=== PATIENT | female | born 1985 | race Caucasian/White ===

== ENCOUNTER → 2017-08-09 | Outpatient (CLI) | payer MEDICAID ==
--- NOTE | 2017-08-09 17:07 | US ---
EXAMINATION TYPE: US OB anatomy transabd DATE OF EXAM: 08/09/2017 COMPARISON: US HISTORY: O36.62X0 LARGE FOR DATES TECHNIQUE: Transabdominal (TA) EXAM MEASUREMENTS: GESTATIONAL AGE / DATING Physician Established: (20 weeks/0 days) EDC: 12/27/2017 Dates by LMP: (20 weeks/0 days) EDC: 12/27/2017 Dates by First Scan: (19 weeks/5 days) EDC: 12/28/2017 Dates by Current Scan for: (20 weeks/5 days) EDC: 12/22/2017 SURVEY IUP: Single PLACENTA: Anterior PREVIA: No previa CLEMENTE: 15.0 cm Normal CERVICAL LENGTH (transabdominal: norm > 3.0cm): 5.0 cm BIOMETRY PRESENTATION: Vertex BPD: 4.8 cm 20 weeks / 4 days HC: 17.8 cm 20 weeks / 2 days AC: 16.5 cm 21 weeks / 4 days FL: 3.3 cm 20 weeks / 3 days ESTIMATED WEIGHT IN GRAMS: 384 grams ESTIMATED WEIGHT IN LBS/OZ: 0 lbs. 14 oz. WEIGHT PERCENTAGE BASED ON ESTABLISHED DATE: 90 % HC/AC: 1.1 Normal FL/AC: 20% Normal HEART RATE: 142 bpm RHYTHM: Normal ANATOMY SEEN (within normal limits): * Lateral Vent (< 1 cm) 0.8 cm * Cisterna Magna (< 1.1 cm) 0.4 cm * Nuchal Fold (< 0.6 cm) 0.3 cm * Cerebellum (varies with age) 1.9 cm Choroid Plexus (bilateral) Midline Falx Cavus Septi Pellucidi Four Chamber Heart Outflow tracts: LVOT/RVOT Stomach Situs Nose / Lips Diaphragm Kidneys (bilateral) Bladder Cord Insert Three Vessel Cord Longitudinal Spine Transverse Spine Arms (bilateral) Legs (bilateral) growth according to dates, normal as visualized IMPRESSION: There is satisfactory growth compared to 05/17/2017. I see no complicating process.
== END | disposition home or self-care (01) ==
LOC: RADUSWWP 16:17
PROVIDERS: ATTEND Obstetrics & Gynecology
DX: O36.62X0 Maternal care for excessive fetal growth, second trimester, not applicable or unspecified (principal); Z3A.20 20 weeks gestation of pregnancy
CPT/HCPCS: 76811

== ENCOUNTER → 2017-09-07 | Outpatient (CLI) | payer MEDICAID ==
[2017-09-07 10:52] LABS: HCT 36.2 % (34.0-46.0); HGB 12.3 gm/dL (11.4-16.0); MCH 32.7 pg (25.0-35.0); MCHC 34.1 g/dL (31.0-37.0); MCV 96.1 fL (80.0-100.0); Mean Platelet Volume 7.8; Platelet Count 170 k/uL (150-450); RBC 3.77 m/uL (3.80-5.40); RDW 13.2 % (11.5-15.5); WBC 7.6 k/uL (3.8-10.6)
== END | disposition home or self-care (01) ==
LOC: LABWHC1 09:05
PROVIDERS: ATTEND Obstetrics & Gynecology
DX: Z34.92 Encounter for supervision of normal pregnancy, unspecified, second trimester (principal); Z3A.00 Weeks of gestation of pregnancy not specified
CPT/HCPCS: 36415; 82950; 85027; 86762

== ENCOUNTER 2017-09-30 12:59 | Outpatient (CLI) | payer MEDICAID ==
[2017-09-30 13:33] VITALS: BP 112/66; PULSE 83; RESP 16; TEMP 98.1
--- NOTE | 2017-09-30 21:37 | P.MSEPDOC ---
Presenting Problems - Arrival Data Date of Arrival on Unit: 09/30/17 Time of Arrival on Unit: 12:56 Mode of Transport: Ambulatory - Complaint OB-Reason for Admission/Chief Complaint: Pain Comment: pt c/o intermittent right upper quad pain below rib cage that lasts a couple seconds at a time for the last three days Medical History - Information : 3 Para: 2 Term: 2 : 0 Abortions: Spontaneous or Elective: 0 Number of Living Children: 2 - Gestational Age Gestational Age by MARGARITA (wks/days): 27 Weeks and 3 Days - History Complications: Prior Review of Systems - Review of Systems Constitutional: No problems Breast: No problems ENT: No problems Cardiovascular: No problems Respiratory: No problems Gastrointestinal: No problems Genitourinary: No problems Musculoskeletal: No problems Neurological: No problems Skin: No problems Vital Signs - Temperature Temperature: 98.1 F Temperature Source: Oral - Pulse Right Brachial Pulse Rate: 83 Pulse Assessment Method: Automatic Cuff - Respirations Respiratory Rate: 16 Oxygen Delivery Method: Room Air O2 Sat by Pulse Oximetry: 98 - Blood Pressure Right Arm Blood Pressure: 112/66 Blood Pressure Mean: 81 Blood Pressure Source: Automatic Cuff Medical Screen Scoring (Pre) - Cervical Exam Dilation: Exam Deferred Effacement: Exam Deferred Membranes: Intact - Uterine Contractions Frequency: N/A Duration: N/A Intensity: N/A - Maternal Vital Signs Maternal Temperature: N/A Maternal Blood Pressure: N/A Signs of Preeclampsia: N/A Maternal Respirations: N/A - Pain Assessment Pain Location and Character: Right, Upper, Abdomen Pain Scale Used: Numeric (1 - 10) Pain Intensity: 4 Pain Management Goal: 5 Pain Description: Cramping Pain Radiation Location: none Pain Frequency: Intermittent Pain Duration: 2 Pain Duration Units: Days Pain Behavior: None Exhibited Pain Aggravating Factors: None - Maternal Trauma Maternal Trauma: N/A - Assessment Baseline FHR: 140 Heart Rate - NICHD Category: Category I (Normal) = 0 Position: N/A Station: N/A - Total Score Total Score (Pre): 0 - Level of Risk Level of Risk: Low (0-5) Physician Notification (Pre) - Physician Notified Physician Notified Date: 09/30/17 Physician Notified Time: 13:33 Physician/Practitioner Notifed:: Dr busch Spoke With: Dr Busch New Order Received: Yes (dc home) Medical Screen Scoring (Post) - Post Treatment Level of Risk Post Treatment Level of Risk: Low (0-5) Disposition - Disposition OB Disposition: Discharge to home, Written follow up instructions reviewed Discharge Date: 09/30/17 Discharge Time: 13:40 I agree with the RN Medical Screening Exam: Yes Risk & Benefit of care provided described in d/c instruction: Yes Diagnosis: PAIN, UNSPECIFIED
== END 2017-09-30 13:40 | disposition home or self-care (01) ==
LOC: FBPOP 12:59
PROVIDERS: ATTEND Obstetrics & Gynecology
DX: O99.89 Other specified diseases and conditions complicating pregnancy, childbirth and the puerperium (principal); R10.11 Right upper quadrant pain; Z3A.27 27 weeks gestation of pregnancy
CPT/HCPCS: 99213

== ENCOUNTER → 2017-11-24 | Outpatient (CLI) | payer MEDICAID ==
--- NOTE | 2017-11-25 23:52 | US ---
EXAMINATION TYPE: US OB >= 14 wk fetus DATE OF EXAM: 11/24/2017 COMPARISON: Prior ultrasound August 09, 2017. CLINICAL HISTORY: O36.63X0 confirm dates TECHNIQUE: GESTATIONAL AGE / DATING Physician Established: (35 weeks/2 days) EDC: 12/27/17 Dates by LMP: (35 weeks/2 days) EDC: 12/27/17 Dates by First Scan: (35 weeks/3 days) EDC: 12/28/17 Dates by Current Scan: (34 weeks/6 days) EDC: 12/30/17 SURVEY IUP: Single PLACENTA: Anterior PREVIA: Low Lying CLEMENTE: 8.4 cm CERVICAL LENGTH (transabdominal: norm > 3.0cm): 4.1 cm BIOMETRY PRESENTATION: Vertex LIE: Longitudinal BPD: 8.7 cm 35 weeks / 1 days HC: 31.5 cm 35 weeks / 3 days AC: 31.0 cm 35 weeks / 0 days FL: 6.9 cm 35 weeks / 2 days ESTIMATED WEIGHT IN GRAMS: 2588 grams ESTIMATED WEIGHT IN LBS/OZ: 5 lbs. 11 oz. WEIGHT PERCENTAGE BASED ON ESTABLISHED DATES: 41% HC/AC: 1.0 FL/AC: 22.1 HEART RATE: 141 bpm RHYTHM: Normal Anatomy visualized: Stomach Kidneys Spine Bladder Cavum septum pellucidum 3 vessel chord Other anatomy not visualized due to crowding and bone shadowing. Stomach appears to have debris in it. 's office notified of low CLEMENTE. Spoke with Jennifer Single live intrauterine gestation is redemonstrated. Normal cephalad presentation to fetus is seen c urrently. There is no ultrasound evidence for placenta previa. Amniotic fluid index is lower limits o f normal. biometry measurements are congruent and felt within normal limits. Anatomical survey is suboptimal at this advanced gestational age. Prominent stomach bubble is noted. A few other anatom ical landmarks are felt satisfactory during real-time scanning as noted above. IMPRESSION: As above
== END ==
LOC: RADUSWWP 15:37
PROVIDERS: ATTEND Obstetrics & Gynecology
DX: O36.63X0 Maternal care for excessive fetal growth, third trimester, not applicable or unspecified (principal); Z3A.35 35 weeks gestation of pregnancy
CPT/HCPCS: 76805

== ENCOUNTER → 2017-11-30 | Outpatient (CLI) | payer MEDICAID ==
--- NOTE | 2017-11-30 15:05 | US ---
EXAMINATION TYPE: US OB >= 14 wk fetus DATE OF EXAM: 11/30/2017 COMPARISON: None CLINICAL HISTORY: O28.8 Other abnormal findings on screen TECHNIQUE: Transabdominal (TA) GESTATIONAL AGE / DATING Physician Established: (36 weeks/1 days) EDC: 12/27/17 Dates by LMP: (36 weeks/1 days) EDC: 12/27/17 Dates by First Scan: (36 weeks/2 days) EDC: 12/28/17 Dates by Current Scan: (37 weeks/1 days) EDC: 12/20/17 Beta HCG (if available): SURVEY IUP: Single PLACENTA: Anterior PREVIA: No Previa CLEMENTE: 8.4 cm CERVICAL LENGTH (transabdominal: norm > 3.0cm): 3.0 cm BIOMETRY PRESENTATION: Vertex LIE: Longitudinal BPD: 9.0 cm 36 weeks / 3 days HC: 33.1 cm 37 weeks / 5 days AC: 35.0 cm 38 weeks / 3 days FL: 7.3 cm 37 weeks / 1 days ESTIMATED WEIGHT IN GRAMS: 3320 grams ESTIMATED WEIGHT IN LBS/OZ: 7 lbs. 5 oz. WEIGHT PERCENTAGE BASED ON ESTABLISHED DATES: 90% HC/AC: 0.9 FL/AC: 20.9 HEART RATE: 179 bpm RHYTHM: Normal Phoned Beulah at [facility] OB with results. IMPRESSION: 1. Single live intrauterine with a sonographic age of 37 weeks and 1 day on today's examina tion and estimated date of delivery of 12/20/2017. Dates are within one week of the menstrual age. 2. Amnionic fluid index is unchanged from the prior and at the lower limits of normal (8.4).
== END | disposition home or self-care (01) ==
LOC: RADUSWWP 14:10
PROVIDERS: ATTEND Obstetrics & Gynecology
DX: O28.8 Other abnormal findings on antenatal screening of mother (principal); Z3A.37 37 weeks gestation of pregnancy
CPT/HCPCS: 76805

== ENCOUNTER → 2017-12-01 | Outpatient (CLI) | payer MEDICAID ==
[2017-12-01 14:01] VITALS: BP 108/69; PULSE 105; RESP 20; TEMP 98.1
--- NOTE | 2017-12-03 16:33 | P.MSEPDOC ---
Presenting Problems - Arrival Data Date of Arrival on Unit: 12/01/17 Time of Arrival on Unit: 13:11 Mode of Transport: Ambulatory - Complaint OB-Reason for Admission/Chief Complaint: NST Comment: Presents with script from Dr. Busch for NST d/t low CLEMENTE. MSE deferred at this time. Medical History - Information : 3 Para: 2 Term: 2 : 0 Abortions: Spontaneous or Elective: 0 Number of Living Children: 2 - Gestational Age Gestational Age by MARGARITA (wks/days): 36 Weeks and 2 Days - History Comment: HX of low CLEMENTE Review of Systems - Review of Systems Constitutional: No problems Breast: No problems ENT: No problems Cardiovascular: No problems Respiratory: No problems Gastrointestinal: No problems Genitourinary: No problems Musculoskeletal: No problems Neurological: No problems Skin: No problems Vital Signs - Temperature Temperature: 98.1 F Temperature Source: Oral - Pulse Right Brachial Pulse Rate: 105 Pulse Assessment Method: Automatic Cuff - Respirations Respiratory Rate: 20 Oxygen Delivery Method: Room Air - Blood Pressure Right Arm Blood Pressure: 108/69 Blood Pressure Mean: 82 Blood Pressure Source: Automatic Cuff Medical Screen Scoring (Pre) - Assessment Baseline FHR: 145 Heart Rate - NICHD Category: Category I (Normal) = 0 NST: Reactive Position: N/A Station: N/A - Total Score Total Score (Pre): 0 - Level of Risk Level of Risk: Low (0-5) Physician Notification (Pre) - Physician Notified Physician Notified Date: 12/01/17 Physician Notified Time: 13:41 Physician/Practitioner Notifed:: Dr. Naranjo Spoke With: Dr. Naranjo New Order Received: Yes - Notification Comment Comment: Discharge home. Keep appt. Return with decreased movement. Disposition - Disposition OB Disposition: Discharge to home, Written follow up instructions reviewed Transferred to:: Home Discharge Date: 12/01/17 Discharge Time: 13:45 I agree with the RN Medical Screening Exam: Yes Risk & Benefit of care provided described in d/c instruction: Yes Diagnosis: OLIGOHYDRAMNIOS, THIRD TRIMESTER, FETUS 1
== END | disposition home or self-care (01) ==
LOC: FBPOP 13:11
PROVIDERS: ATTEND Obstetrics & Gynecology
DX: O41.03X0 Oligohydramnios, third trimester, not applicable or unspecified (principal); Z3A.36 36 weeks gestation of pregnancy
CPT/HCPCS: 59025

== ENCOUNTER 2017-12-04 10:17 | Outpatient (CLI) | payer MEDICAID ==
[2017-12-04 10:52] VITALS: BP 120/73; PULSE 114; RESP 18; TEMP 98.3
--- NOTE | 2017-12-04 17:03 | P.MSEPDOC ---
Presenting Problems - Arrival Data Date of Arrival on Unit: 12/04/17 Time of Arrival on Unit: 10:30 Mode of Transport: Ambulatory - Complaint OB-Reason for Admission/Chief Complaint: Possible Onset of Labor Comment: states not feeling right...feeling off....sob...cramping. denies leaking or bleeding. has borderline low cristopher. nst's twice weekly. Medical History - Information : 3 Para: 2 Term: 2 : 0 Abortions: Spontaneous or Elective: 0 Number of Living Children: 2 - Gestational Age Gestational Age by MARGARITA (wks/days): 36 Weeks and 5 Days Review of Systems - Review of Systems Constitutional: No problems Breast: No problems ENT: No problems Cardiovascular: No problems Respiratory: No problems Gastrointestinal: No problems Genitourinary: No problems Musculoskeletal: No problems Neurological: No problems Skin: No problems Vital Signs - Temperature Temperature: 98.3 F Temperature Source: Oral - Pulse Right Brachial Pulse Rate: 114 Pulse Assessment Method: Automatic Cuff - Respirations Respiratory Rate: 18 Oxygen Delivery Method: Room Air O2 Sat by Pulse Oximetry: 96 - Blood Pressure Right Arm Blood Pressure: 120/73 Blood Pressure Mean: 88 Blood Pressure Source: Automatic Cuff Medical Screen Scoring (Pre) - Cervical Exam Dilation: Exam Deferred Effacement: Exam Deferred Membranes: Intact - Uterine Contractions Frequency: N/A Duration: N/A Intensity: N/A - Maternal Vital Signs Maternal Temperature: N/A Maternal Blood Pressure: N/A Signs of Preeclampsia: N/A Maternal Respirations: N/A - Pain Assessment Pain Location and Character: Lower, Abdomen Pain Scale Used: Numeric (1 - 10) Pain Intensity: 2 Pain Radiation Location: 7 Pain Frequency: Intermittent Pain Behavior: None Exhibited, Vocalization Pain Aggravating Factors: Activity, Contractions, Standing Non-Pharmacological Interventions: Darkened Room - Maternal Trauma Maternal Trauma: N/A - Assessment Baseline FHR: 150 Heart Rate - NICHD Category: Category I (Normal) = 0 NST: Reactive Position: N/A Station: N/A - Total Score Total Score (Pre): 0 - Level of Risk Level of Risk: Low (0-5) Physician Notification (Pre) - Physician Notified Physician Notified Date: 12/04/17 Physician Notified Time: 11:00 Physician/Practitioner Notifed:: yes Spoke With: sun Ledesma Order Received: Yes - Notification Comment Comment: discharge home. notified of pt admission c/o. vitals. lung sounds. heart rate regular. abd soft. irreg contx. no vag exam, reactive nst, sched appt tomorrow. without dyspnea. Medical Screen Scoring (Post) - Cervical Exam Dilation: Exam Deferred Effacement: Exam Deferred Membranes: Intact - Uterine Contractions Frequency: N/A Duration: N/A Intensity: N/A - Maternal Vital Signs Maternal Temperature: N/A Maternal Blood Pressure: N/A Signs of Preeclampsia: N/A Maternal Respirations: N/A - Pain Assessment Pain Location and Character: Lower, Abdomen Pain Scale Used: Numeric (1 - 10) Pain Intensity: 2 Pain Description: *Acute Pain Frequency: Intermittent Pain Duration: 15 Pain Duration Units: Minutes Pain Behavior: None Exhibited, Vocalization Pain Aggravating Factors: Activity, Standing Non-Pharmacological Interventions: Darkened Room - Maternal Trauma Maternal Trauma: N/A - Assessment Heart Rate: 150 Heart Rate - NICHD Category: Category I (Normal) = 0 NST: Reactive Position: N/A Station: N/A - Total Score Total Score (Post): 0 - Post Treatment Level of Risk Post Treatment Level of Risk: Low (0-5) Physician Notification (Post) - Physician Notified Physician Notified Date: 12/04/17 Physician Notified Time: 11:05 Spoke With: sun Ledesma Order Received: Yes - Notification Comment Comment: discharge. keep sched appt tomorow Disposition - Disposition OB Disposition: Discharge to home Discharge Date: 12/04/17 Discharge Time: 11:17 I agree with the RN Medical Screening Exam: Yes Risk & Benefit of care provided described in d/c instruction: Yes Diagnosis: FALSE LABOR BEFORE 37 COMPLETED WEEKS OF GEST, THIRD TRI
== END 2017-12-04 11:17 | disposition home or self-care (01) ==
LOC: FBPOP 10:17
PROVIDERS: ATTEND Obstetrics & Gynecology
DX: O47.03 False labor before 37 completed weeks of gestation, third trimester (principal); Z3A.36 36 weeks gestation of pregnancy
CPT/HCPCS: 59025; 99213

== ENCOUNTER → 2017-12-06 | Outpatient (CLI) | payer MEDICAID ==
--- NOTE | 2017-12-06 13:11 | US ---
EXAMINATION TYPE: US OB limited DATE OF EXAM: 12/06/2017 COMPARISON: 11/30/2017 CLINICAL HISTORY: 31-year-old female O28.8 abnormal findings on screening of. Low CLEMENTE- CLEMENTE only per order EXAM PERFORMED: Transabdominal (TA) FINDINGS: GESTATIONAL AGE / DATING Physician Established: (37 weeks/0 days) EDC: 12/27/2017 No growth performed on today?s study per ordering physician SURVEY CLEMENTE: 13.7 cm Normal Ultrasound evidence of premature rupture of membranes? No PRESENTATION: Vertex HEART RATE: 165 bpm RHYTHM: Normal Mild floating echoes/debris visualized within amniotic fluid. IMPRESSION: 1. Single live intrauterine with established gestational age of 37 weeks 0 days. Growth not assessed on the current exam. 2. CLEMENTE now measured at 13.7 cm which is normal. 3. Some internal low-level echoes/debris within the amniotic fluid is noted by the pad hand. Likel y some vernix caseosa.
== END | disposition home or self-care (01) ==
LOC: RADUSWWP 09:35
PROVIDERS: ATTEND Obstetrics & Gynecology
DX: O28.8 Other abnormal findings on antenatal screening of mother (principal); Z3A.37 37 weeks gestation of pregnancy
CPT/HCPCS: 76815

== ENCOUNTER 2017-12-08 09:54 | Outpatient (CLI) | payer MEDICAID ==
[2017-12-08 10:30] VITALS: BP 118/70; PULSE 98; RESP 18; TEMP 97.3
--- NOTE | 2017-12-09 06:48 | P.MSEPDOC ---
Presenting Problems - Arrival Data Date of Arrival on Unit: 12/08/17 Time of Arrival on Unit: 09:52 Mode of Transport: Ambulatory - Complaint OB-Reason for Admission/Chief Complaint: NST Comment: NST for "borderline" low amniotic fluid Medical History - Information : 3 Para: 2 Term: 2 : 0 Abortions: Spontaneous or Elective: 0 Number of Living Children: 2 - Gestational Age Gestational Age by MARGARITA (wks/days): 37 Weeks and 2 Days - History Complications: Prior Review of Systems - Review of Systems Constitutional: No problems Breast: No problems ENT: No problems Cardiovascular: No problems Respiratory: No problems Gastrointestinal: No problems Genitourinary: No problems Musculoskeletal: No problems Neurological: No problems Skin: No problems Vital Signs - Temperature Temperature: 97.3 F Temperature Source: Temporal Artery Scan - Pulse Pulse Oximetery Pulse Rate: 98 Pulse Assessment Method: Pulse Oximetry - Respirations Respiratory Rate: 18 Oxygen Delivery Method: Room Air O2 Sat by Pulse Oximetry: 97 - Blood Pressure Right Arm Blood Pressure: 118/70 Blood Pressure Mean: 86 Blood Pressure Source: Automatic Cuff Medical Screen Scoring (Pre) - Cervical Exam Dilation: Exam Deferred Effacement: Exam Deferred Membranes: Intact - Uterine Contractions Frequency: > 5 minutes apart = 1 Duration: N/A Intensity: N/A - Maternal Vital Signs Maternal Temperature: N/A Maternal Blood Pressure: N/A Signs of Preeclampsia: N/A Maternal Respirations: N/A - Pain Assessment Pain Scale Used: Numeric (1 - 10) Pain Intensity: 0 - Assessment Baseline FHR: 135 Heart Rate - NICHD Category: Category I (Normal) = 0 NST: Reactive Position: N/A Station: N/A - Total Score Total Score (Pre): 1 - Level of Risk Level of Risk: Low (0-5) Physician Notification (Pre) - Physician Notified Physician Notified Date: 12/08/17 Physician Notified Time: 10:18 Physician/Practitioner Notifed:: Narayan Spoke With: Narayan Ledesma Order Received: Yes (discharge home) Disposition - Disposition OB Disposition: Discharge to home Discharge Date: 12/08/17 Discharge Time: 10:22 I agree with the RN Medical Screening Exam: Yes Risk & Benefit of care provided described in d/c instruction: Yes Diagnosis: OTH DISRD OF AMNIOTIC FLUID AND MEMBRNS, FIRST TRI, FETUS 1
== END 2017-12-08 10:22 | disposition home or self-care (01) ==
LOC: FBPOP 09:54
PROVIDERS: ATTEND Obstetrics & Gynecology
DX: O41.8X10 Other specified disorders of amniotic fluid and membranes, first trimester, not applicable or unspecified (principal); Z3A.37 37 weeks gestation of pregnancy
CPT/HCPCS: 59025; 99213

== ENCOUNTER 2017-12-15 10:27 | Outpatient (CLI) | payer MEDICAID ==
--- NOTE | 2017-12-16 06:39 | P.MSEPDOC ---
Presenting Problems - Arrival Data Date of Arrival on Unit: 12/15/17 Time of Arrival on Unit: 10:27 Mode of Transport: Ambulatory - Complaint OB-Reason for Admission/Chief Complaint: NST Comment: Pt arrives to triage with a script for NST; pt may be d/c home if reactive. I agree with the RN Medical Screening Exam: Yes Risk & Benefit of care provided described in d/c instruction: Yes Diagnosis: DISORDER OF AMNIOTIC FLUID AND MEMBRNS, UNSP, THIRD TRI, OTH
== END 2017-12-15 10:50 | disposition home or self-care (01) ==
LOC: FBPOP 10:27
PROVIDERS: ATTEND Obstetrics & Gynecology
DX: O41.93X0 Disorder of amniotic fluid and membranes, unspecified, third trimester, not applicable or unspecified (principal); Z3A.00 Weeks of gestation of pregnancy not specified
CPT/HCPCS: 59025

== ENCOUNTER 2017-12-22 10:57 | Outpatient (CLI) | payer MEDICAID ==
[2017-12-22 12:07] VITALS: BP 116/74; PULSE 81; RESP 16; TEMP 97
--- NOTE | 2017-12-26 06:52 | P.MSEPDOC ---
Presenting Problems - Arrival Data Date of Arrival on Unit: 12/22/17 Time of Arrival on Unit: 11:00 Mode of Transport: Ambulatory - Complaint OB-Reason for Admission/Chief Complaint: NST Medical History - Information : 3 Para: 2 Term: 2 : 0 Abortions: Spontaneous or Elective: 0 Number of Living Children: 2 - Gestational Age Gestational Age by MARGARITA (wks/days): 39 Weeks and 2 Days - History Comment: low CLEMENTE, Pt presented with written RX for NST Review of Systems - Review of Systems Constitutional: No problems Breast: No problems ENT: No problems Cardiovascular: No problems Respiratory: No problems Gastrointestinal: No problems Genitourinary: No problems Musculoskeletal: No problems Neurological: No problems Skin: No problems Vital Signs - Temperature Temperature: 97.0 F Temperature Source: Tympanic - Pulse Right Brachial Pulse Rate: 81 Pulse Assessment Method: Automatic Cuff - Respirations Respiratory Rate: 16 Oxygen Delivery Method: Room Air - Blood Pressure Right Arm Blood Pressure: 116/74 Blood Pressure Mean: 88 Blood Pressure Source: Automatic Cuff Medical Screen Scoring (Pre) - Cervical Exam Dilation: Exam Deferred Effacement: Exam Deferred Membranes: Intact - Uterine Contractions Frequency: > or = 36 weeks =2 Duration: > 40 seconds = 2 Intensity: N/A - Maternal Vital Signs Maternal Temperature: N/A Maternal Blood Pressure: N/A Signs of Preeclampsia: N/A Maternal Respirations: N/A - Maternal Trauma Maternal Trauma: N/A - Assessment Baseline FHR: 135 Heart Rate - NICHD Category: Category I (Normal) = 0 NST: Reactive Position: N/A Station: N/A - Total Score Total Score (Pre): 4 Disposition - Disposition OB Disposition: Discharge to home Discharge Date: 12/22/17 Discharge Time: 11:30 I agree with the RN Medical Screening Exam: Yes Risk & Benefit of care provided described in d/c instruction: Yes Diagnosis: DISORDER OF AMNIOTIC FLUID AND MEMBRNS, UNSP, UNSP TRI, OTH
== END 2017-12-22 11:30 | disposition home or self-care (01) ==
LOC: FBPOP 10:57
PROVIDERS: ATTEND Obstetrics & Gynecology
DX: O41.93X0 Disorder of amniotic fluid and membranes, unspecified, third trimester, not applicable or unspecified (principal); Z3A.39 39 weeks gestation of pregnancy
CPT/HCPCS: 59025; 99213

== ENCOUNTER 2017-12-27 05:52 | Inpatient (IN) | payer MEDICAID ==
--- NOTE | 2017-12-26 06:17 | P.HPOB ---
History of Present Illness H&P Date: 12/26/17 Chief Complaint: Patient is presenting for repeat and tubal ligation This patient is a pleasant 31-year-old 3 para 2 female estimated date of confinement 12/27/2017 estimated gestational age 40-0/7 weeks gestation who presents to labor and delivery for repeat section and tubal ligation. Patient's was complicated by a low normal CLEMENTE that was discovered at 35 weeks however repeat fluid index was normal and nonstress testing has been normal. Patient also has macrosomia. care otherwise has been uncomplicated. Patient said 2 previous section and requested repeat C- section and also requests permanent sterilization. Review of Systems Gastrointestinal: Reports heartburn Genitourinary: Reports Menstruation: Reports amenorrhea Past Medical History Past Medical History: No Reported History History of Any Multi-Drug Resistant Organisms: None Reported Past Surgical History: Section, Tonsillectomy Additional Past Surgical History / Comment(s): TONSILLS A CHILD, X2. Past Anesthesia/Blood Transfusion Reactions: No Reported Reaction Past Psychological History: No Psychological Hx Reported Smoking Status: Never smoker Past Alcohol Use History: None Reported Past Drug Use History: None Reported - Past Family History Father Family Medical History: Cancer Additional Family Medical History / Comment(s): ORAL CANCER Medications and Allergies Home Medications Medication Instructions Recorded Confirmed Type Pnv,Calcium 72/Iron/Folic Acid 1 tab PO DAILY 09/30/17 12/15/17 History [ Plus Tablet] Allergies Allergy/AdvReac Type Severity Reaction Status Date / Time No Known Allergies Allergy Verified 12/15/17 10:36 Exam - OBG Physical Exam Abdomen: bowel sounds normal, no diffuse tenderness, no bruit present, no guarding noted, no hepatomegaly, no splenomegaly, no mass Vulva: both: normal Vagina: normal moisture, no discharge Cervix: no lesion, no discharge Uterus: enlarged (Fundal height is greater than dates.) Results blood work shows she is A positive, rubella immune, hepatitis B negative, HIV nonreactive, RPR is negative, group B strep was negative, ultrasounds of shown macrosomia otherwise normal. Glucola was normal. Assessment and Plan Assessment: This is a pleasant 31-year-old 3 para 2 female 40-0/7 weeks gestation with previous section who desires repeat section and also requesting permanent sterilization. Patient I have discussed the fact that a tubal ligation is permanent however there is a failure rate of approximately 5 per thousand procedures done. Patient also understands surgery itself has risks including risks of infection, bleeding, possible injury bowel, bladder, vessels, and/or other organs. She understands risk of DVT and pulmonary embolism. All the patient's questions are answered and a written consent is obtained. (1) Previous delivery affecting Status: Acute Code(s): O34.21 - MATERNAL CARE FOR SCAR FROM PREVIOUS * DO NOT USE * SNOMED Code(s): 303492236 (2) Family planning Status: Acute Code(s): Z30.09 - ENCOUNTER FOR OTH GENERAL CNSL AND ADVICE ON CONTRACEPTION SNOMED Code(s): 509090012
[2017-12-26 14:39] VITALS: BMI 31.8
[2017-12-27] MEDS ORDERED: LACTATED RINGERS 1,000 ML IV SCH ×2 (06:02→08:36)
[2017-12-27] MEDS ORDERED: CITRIC ACID-SODIUM CITRATE 15 ML CUP PO ONE (06:02)
[2017-12-27] MEDS ORDERED: LACTATED RINGERS 1,000 ML IV ONE (06:02)
[2017-12-27 06:15] LABS: Basophils % (A) 0 %; Eosinophils # (A) 0.1 k/uL (0-0.7); Eosinophils % (A) 1 %; HCT 38.8 % (34.0-46.0); HGB 13.5 gm/dL (11.4-16.0); Lymphocytes # (A) 2.3 k/uL (1.0-4.8); Lymphocytes % (A) 26 %; MCH 33.3 pg (25.0-35.0); MCHC 34.8 g/dL (31.0-37.0); MCV 95.8 fL (80.0-100.0); Mean Platelet Volume 9.1; Monocytes # (A) 0.3 k/uL (0-1.0); Monocytes % (A) 4 %; Neutrophils % (A) 68 %; Platelet Count 130 k/uL (150-450); RBC 4.05 m/uL (3.80-5.40); RDW 13.3 % (11.5-15.5); WBC 8.8 k/uL (3.8-10.6)
[2017-12-27] MEDS ORDERED: ceFAZolin IN SWFI 2 GM/20 ML SYRINGE IVP ONE (07:15)
[2017-12-27] MEDS ORDERED: DEXAMETHASONE SOD PHOS (MDV) 100 MG/10 ML VIAL ONE (07:47)
[2017-12-27] MEDS ORDERED: ONDANSETRON 4 MG/2 ML VIAL ONE (07:47)
[2017-12-27] MEDS ORDERED: OXYTOCIN 10 UNIT/ML 1 ML VIAL ONE (07:47)
[2017-12-27] MEDS ORDERED: MORPHINE SULFATE (PF) 0.3 MG/0.3 ML SYR ONE (07:47)
[2017-12-27] MEDS ORDERED: NALBUPHINE 10 MG/ML AMPUL ONE (07:47)
[2017-12-27] MEDS ORDERED: KETOROLAC 30 MG/ML 1 ML VIAL ONE (07:47)
[2017-12-27] MEDS ORDERED: OXYTOCIN 20 UNITS/1000 ML NS 1,000 ML IV SCH (08:36)
[2017-12-27] MEDS ORDERED: SIMETHICONE 80 MG CHEWABLE PO PRN (08:36)
[2017-12-27] MEDS ORDERED: METOCLOPRAMIDE 5 MG/ML 2 ML VIAL IVP PRN (08:36)
[2017-12-27] MEDS ORDERED: ONDANSETRON 4 MG/2 ML VIAL IVP PRN (08:36)
[2017-12-27] MEDS ORDERED: NALOXONE 0.4 MG/ML 1 ML VIAL IV PRN (08:36)
[2017-12-27] MEDS ORDERED: LANOLIN CREAM 5 GM TUBE TOPICAL PRN (08:36)
[2017-12-27] MEDS ORDERED: ZOLPIDEM 5 MG TAB PO PRN (08:36)
[2017-12-27] MEDS ORDERED: diphenhydrAMINE 50 MG/ML 1 ML VIAL IVP PRN (08:36)
[2017-12-27] MEDS ORDERED: diphenhydrAMINE 25 MG CAP PO PRN (08:36)
[2017-12-27] MEDS ORDERED: KETOROLAC 30 MG/ML 1 ML VIAL IVP PRN (08:36)
--- NOTE | 2017-12-27 08:38 | P.OP ---
Date of Procedure: 12/27/17 Preoperative Diagnosis: #1: 40-0/7 weeks . #2: Previous section 2 desires repeat. # 3: Multi parity desires permanent sterilization. #4: Early labor Postoperative Diagnosis: Same Procedure(s) Performed: #1: Repeat low transverse section. #2: Bilateral partial salpingectomy Anesthesia: spinal Surgeon: Dre Busch Research Anthropologist #1: Alisha Antonio Estimated Blood Loss (ml): 600 Pathology: other (Placenta and bilateral fallopian tube segments) Condition: stable Disposition: floor Indications for Procedure: Please see dictated H&P for intimate details of this patient's admission. Brief summary this is a pleasant 31-year-old 3 para 2 female 40-0/7 weeks gestation who is admitted to labor and delivery for elective repeat section and tubal ligation. Patient also began having regular painful contractions about 2:00 this morning. Patient I have discussed the surgery and risks including risks of infection, bleeding, possible injury bowel, bladder, vessels, and/or other organs. All the patient's questions are answered and written consent is obtained. Operative Findings: This is a vigorous viable male infant Apgars 8 and 9 delivery time was 0805 hrs. 's weight was 4790 g or 10 lbs. 9 oz. had spontaneous respiration and grossly appeared normal. Nuchal cord 1 Description of Procedure: This patient has a Curry catheter placed to straight drain. She is subsequently taken to the operating room where she sat up and spinal anesthetic is administered without incident. With an adequate level of anesthesia she has abdominal prep and drape. Scalpels and taken and a Pfannenstiel skin incision is made through the previous incision. A second scalpel is taken down the fascia the fascia scored with a knife. Fascial incision extended bilaterally using the Saeed scissors. Fascia is dissected off the rectus muscles sharply. Rectus muscles are the peritoneum identified and entered sharply. Peritoneal incision extended superiorly and inferiorly without difficulty. Bladder blade is then placed. Bladder peritoneum was taken off the lower uterine segment with the Metzenbaum scissors. Scalpels and taken and a low transverse uterine incision is then made. Using a hemostat I into the uterine cavity bluntly and there is loss of a copious amount of clear fluid. This incision is then extended bluntly. Infant's head is then gently guided through the incision with fundal pressure. Mouth and nares are bulb suctioned. There is a nuchal cord which is loose and then reduced. With more fundal pressure we then have deliver the anterior and posterior shoulder and rest this infant's body. Is a vigorous viable male infant Apgars are 8 and 9 delivery time is 0805 hrs. After delivery of the the umbilical cord is doubly clamped and cut is handed off to the nurses in attendance. The placenta is then manually extracted intact. Uterus is then externalized and uterine incision demarcated with Hanson clamps. All tissue is removed from the uterus without difficulty. Uterine incision then closed using 0 Vicryl running locked fashion. Excellent hemostasis is noted. Then turned my attention a left fallopian tube and approximately 4 cm from the cornual insertion a small window is made to the mesial salpinx with Bovie cautery. Using a 2-0 silk I doubly ligate a 2 cm segment of the tube. Estimated segment is excised and handed off to pathology. Cauterization is done of the tubal ends. Excellent hemostasis is noted similar technique is done the right side with similar results. With this done excess fluid is removed from the abdomen and pelvis. Uterus placed back into the abdomen. Parietal peritoneum was then identified. Inspect the fallopian tubes incision once again I do put a [id number] stitch and the uterine incision for one area that is a little bit oozy. With this done the parietal peritoneum was then closed using 0 Vicryl running fashion. Rectus muscles reapproximated in 0 Vicryl interrupted fashion. Fascia is then closed using 0 PDS. Fascial incision is intact and hemostatic. Subcutaneous tissues and closed using a 3-0 Vicryl. Skin is and closed using cb. All counts are correct 3. There are no complications. Infant and mother are in taken to the delivery room in satisfactory condition.
[2017-12-27] MEDS: SENNOSIDES-DOCUSATE SODIUM 1 EACH TAB PO SCH ×2 (08:52→19:53)
--- NOTE | 2017-12-28 05:46 | P.PN ---
Progress Note - Text Date: 12/28/2017 Time: 605 The patient is status post section Vital signs stable VAS: 0-10 Patient has no complaints of pain. The patient incurred some minimal itching yesterday, this itching is now subsiding. Pain meds to be managed by service.
--- NOTE | 2017-12-28 06:34 | P.PNOBGPC ---
Subjective - Subjective Patient reports: Reports appetite normal, Reports voiding normally, Reports pain well controlled, Reports ambulating normally : doing well Objective - Vital Signs Latest vital signs: Vital Signs Temp Pulse Resp BP Pulse Ox 12/28/17 04:00 98.2 F 84 16 111/66 12/28/17 02:00 14 98 12/27/17 23:30 98.2 F 72 16 107/57 99 12/27/17 22:00 16 98 12/27/17 20:33 98 12/27/17 20:00 98.3 F 76 16 120/67 12/27/17 16:00 98.7 F 72 18 116/54 95 12/27/17 11:00 96.8 F L 69 18 111/65 96 12/27/17 10:05 97.6 F 72 18 112/61 96 12/27/17 09:35 96.9 F L 71 18 113/65 97 12/27/17 09:20 72 117/69 12/27/17 09:05 97.2 F L 68 18 116/64 96 12/27/17 08:50 97.9 F 77 18 120/64 96 12/27/17 08:35 97.4 F L 86 18 113/61 98 Intake and Output 12/27/17 12/27/17 12/28/17 14:59 22:59 06:59 Intake Total 900 600 Output Total 596 591 6433 Balance -500 600 -400 Intake: IV 900 Invasive Line 1 900 Other 600 Output: Urine 708 173 7039 Straight 1000 Uretheral (Curry) 300 - Exam Lungs: bilateral: normal Chest: Normal S1, Normal S2 Extremities: Present: normal Abdomen: Present: normal appearance, soft. Absent: distention, tenderness Incision: Present: normal, dry, intact Uterus: Present: normal, firm Assessment and Plan Assessment: Post operative day #1. Patient is resting without complaints. Vital signs are stable she is afebrile. Uterus is firm nontender and her incision is intact and dry. Plan today is to advance to regular diet, check a CBC, encourage ambulation, and continue routine postoperative care. (1) Previous delivery affecting Current Visit: No Status: Acute Code(s): O34.21 - MATERNAL CARE FOR SCAR FROM PREVIOUS * DO NOT USE * SNOMED Code(s): 011106091 (2) Family planning Current Visit: Yes Status: Acute Code(s): Z30.09 - ENCOUNTER FOR OTH GENERAL CNSL AND ADVICE ON CONTRACEPTION SNOMED Code(s): 252795162
[2017-12-28 06:47] LABS: Basophils % (A) 0 %; Eosinophils # (A) 0.1 k/uL (0-0.7); Eosinophils % (A) 1 %; HCT 34.4 % (34.0-46.0); HGB 11.8 gm/dL (11.4-16.0); Lymphocytes # (A) 1.6 k/uL (1.0-4.8); Lymphocytes % (A) 20 %; MCH 33.2 pg (25.0-35.0); MCHC 34.3 g/dL (31.0-37.0); MCV 96.7 fL (80.0-100.0); Mean Platelet Volume 9.6; Monocytes # (A) 0.3 k/uL (0-1.0); Monocytes % (A) 4 %; Neutrophils % (A) 74 %; Platelet Count 102 k/uL (150-450); RBC 3.56 m/uL (3.80-5.40); RDW 13.5 % (11.5-15.5); WBC 8.1 k/uL (3.8-10.6)
[2017-12-28] MEDS: SENNOSIDES-DOCUSATE SODIUM 1 EACH TAB PO SCH ×2 (08:00→20:14)
[2017-12-28] MEDS: ACETAMINOPHEN TAB 325 MG TAB PO PRN ×2 (08:01→16:12)
[2017-12-28] MEDS: IBUPROFEN 600 MG TAB PO PRN ×2 (12:03→19:33)
[2017-12-28] MEDS: Acetaminophen-Codeine 300-30mg TAB PO PRN (20:49)
[2017-12-29] MEDS: IBUPROFEN 600 MG TAB PO PRN ×2 (01:33→08:21)
[2017-12-29] MEDS: Acetaminophen-Codeine 300-30mg TAB PO PRN (04:06)
--- NOTE | 2017-12-29 06:40 | P.PNOBGPC ---
Subjective - Subjective Patient reports: Reports appetite normal, Reports voiding normally, Reports pain well controlled, Reports ambulating normally : doing well Objective - Vital Signs Latest vital signs: Vital Signs Temp Pulse Resp BP Pulse Ox 12/29/17 00:00 98.2 F 70 18 106/61 100 12/28/17 16:00 98.0 F 77 16 101/61 12/28/17 08:00 97.8 F 73 18 99/62 97 Intake and Output 12/28/17 12/28/17 12/29/17 14:59 22:59 06:59 Output Total 350 Balance -350 Output: Urine 350 Other: # Voids 1 - Exam Lungs: bilateral: normal Chest: Normal S1, Normal S2 Extremities: Present: normal Abdomen: Present: normal appearance, soft. Absent: distention, tenderness Incision: Present: normal, dry, intact Uterus: Present: normal, firm - Labs Labs: Abnormal Lab Results - Last 24 Hours (Table) 12/28/17 Range/Units 06:36 RBC 3.56 L (3.80-5.40) m/uL Plt Count 102 L (150-450) k/uL Assessment and Plan Assessment: Post operative day #2. Patient is resting without complaints and wishes to go home. Vital signs are stable she's afebrile. Uterus is firm nontender and she is having normal lochia. Her incision is intact and dry. CBC yesterday was normal. Patient's tolerating regular diet, urinating, ambulating without difficulty. My impression is that this is a normal postoperative course. Plan is to continue routine postoperative care discharge home later today. (1) Previous delivery affecting Current Visit: No Status: Acute Code(s): O34.21 - MATERNAL CARE FOR SCAR FROM PREVIOUS * DO NOT USE * SNOMED Code(s): 701779828 (2) Family planning Current Visit: Yes Status: Acute Code(s): Z30.09 - ENCOUNTER FOR OTH GENERAL CNSL AND ADVICE ON CONTRACEPTION SNOMED Code(s): 535793188
--- NOTE | 2017-12-29 06:47 | P.DS ---
Providers Date of admission: 12/27/17 05:52 Expected date of discharge: 12/29/17 Attending physician: Dre Busch Primary care physician: Stated None - Discharge Diagnosis(es) (1) Previous delivery affecting Current Visit: No Status: Acute (2) Family planning Current Visit: Yes Status: Acute Hospital Course: Please see dictated H&P for intimate details of this patient's admission. Brief summary this is a pleasant 31-year-old 3 para 2 female 40-0/7 weeks gestation admitted to labor and delivery for elective repeat section and also permanent sterilization. Patient undergoes repeat low transverse section and bilateral partial salpingectomy for a viable male infant. Please see dictated delivery note. day #2 patient's felt be stable for discharge home follow up with me in 1 week. Procedures: Repeat low transverse section and bilateral partial salpingectomy. Patient Condition at Discharge: Good Plan - Discharge Summary New Discharge Prescriptions: New Acetaminophen-Codeine 300-30mg [Tylenol w/codeine #3] 2 each PO Q6HR PRN #24 tab PRN Reason: Pain Ibuprofen [Motrin] 600 mg PO Q6HR PRN #40 tab PRN Reason: Mild Pain Or Fever >= 100.5 No Action Pnv,Calcium 72/Iron/Folic Acid [ Plus Tablet] 1 tab PO DAILY Discharge Medication List Pnv,Calcium 72/Iron/Folic Acid [ Plus Tablet] 1 tab PO DAILY 09/30/17 [ History] Acetaminophen-Codeine 300-30mg [Tylenol w/codeine #3] 2 each PO Q6HR PRN #24 tab 12/29/17 [Rx] Ibuprofen [Motrin] 600 mg PO Q6HR PRN #40 tab 12/29/17 [Rx] Follow up Appointment(s)/Referral(s): Dre Busch MD [STAFF PHYSICIAN] - 01/05/18 1:30 pm (Patient also has a post appointment on February 14 at 8:30 AM.) Patient Instructions/Handouts: (DC) Activity/Diet/Wound Care/Special Instructions: No strenuous activity or heavy lifting for 6 weeks. No intercourse or anything per vagina for 6 weeks. Please call if any fever, chills, excessive vaginal bleeding, and/or abdominal pain. Discharge Disposition: HOME SELF-CARE
[2017-12-29] MEDS: SENNOSIDES-DOCUSATE SODIUM 1 EACH TAB PO SCH (08:21)
[2017-12-29 09:23] VITALS: BP 105/65; PULSE 78; RESP 16; TEMP 97.7
== END 2017-12-29 11:00 | disposition home or self-care (01) | DRG 766 ==
LOC: 4FBP 05:52
PROVIDERS: ADMIT Obstetrics & Gynecology; ATTEND Obstetrics & Gynecology
PROC: 0UB70ZZ Excision of Bilateral Fallopian Tubes, Open Approach (ICD-10-PCS; principal; 2017-12-27 08:00)
PROC: 10D00Z1 Extraction of Products of Conception, Low, Open Approach (ICD-10-PCS; principal; 2017-12-27 08:00)
DX: O34.211 Maternal care for low transverse scar from previous cesarean delivery (principal); Z37.0 Single live birth; O36.63X0 Maternal care for excessive fetal growth, third trimester, not applicable or unspecified; O69.81X0 Labor and delivery complicated by cord around neck, without compression, not applicable or unspecified; Z30.2 Encounter for sterilization; Z3A.40 40 weeks gestation of pregnancy; O48.0 Post-term pregnancy
CPT/HCPCS: 85025; 86850; 86900; 86901; 88302; 88307

== ENCOUNTER → 2022-04-06 | Outpatient (CLI) | payer MEDICAID ==
--- NOTE | 2022-04-07 08:43 | MM ---
Reason for Exam: Screening (asymptomatic). Baseline mammogram. Indicated Problems: Palpable abnormality of the right side for 4 Month(s). Patient History: Menarche at age 11. First Full-Term at age 26. Patient has history of breast feeding. Patient used Hormonal Contraceptives for 5 years. Last menstrual period: 04/06/2022 Risk Values: Devi 5 year model risk: 0.4%. NCI Lifetime model risk: 11.2%. Prior Study Comparison: Patient's first Mammogram. Tissue Density: The breast tissue is extremely dense which could obscure a lesion on mammography. Findings: Analyzed By CAD. There is no suspicious group of microcalcifications or suspicious mass in either breast. Patient reports palpable abnormality on right breast for 4 months with palpable marker placed. Overall Assessment: Incomplete: need additional imaging evaluation, BI-RAD 0 Management: Diagnostic Breast Ultrasound of the right breast. A clinical breast exam by your physician is recommended on an annual basis and results should be correlated with mammographic findings. [facility] will attempt to contact patient to return for supplemental views and ultrasound if indicated. Electronically signed and approved by: Kris Espinoza D.O.
== END | disposition home or self-care (01) ==
LOC: RADMAMWWP 15:15
PROVIDERS: ATTEND Obstetrics & Gynecology
DX: Z12.31 Encounter for screening mammogram for malignant neoplasm of breast (principal)
CPT/HCPCS: 77063; 77067

== ENCOUNTER → 2022-04-08 | Outpatient (CLI) | payer MEDICAID ==
--- NOTE | 2022-04-08 10:17 | USB ---
Reason for Exam: Clinical finding. Patient History: Menarche at age 11. First Full-Term at age 26. Patient has history of breast feeding. Patient used Hormonal Contraceptives for 5 years. Risk Values: Devi 5 year model risk: 0.4%. NCI Lifetime model risk: 11.2%. Technique: Method: Targeted. Prior Study Comparison: 04/06/2022 Bilateral MG 3D screening mammo w/cad, [facility]. Findings: The upper outer quadrant of the right breast, the axilla of the right breast and the retroareolar of the right breast were scanned. No solid or cystic masses are identified..There is a benign-appearing cystlike structure at the palpable abnormality in the subcutaneous tissue. This is good through transmission.. Overall Assessment: Probably benign, BI-RAD 3 Management: Diagnostic Breast Ultrasound of the right breast in 6 months. A clinical breast exam by your physician is recommended on an annual basis and results should be correlated with mammographic findings. Electronically signed and approved by: Isai Richard D.O. Radiologis
== END | disposition home or self-care (01) ==
LOC: RADUSWWP 09:40
PROVIDERS: ATTEND Obstetrics & Gynecology
DX: R92.8 Other abnormal and inconclusive findings on diagnostic imaging of breast (principal)

== ENCOUNTER → 2024-04-11 | Outpatient (CLI) | payer MEDICAID ==
[2024-04-11 15:48] LABS: Basophils # (A) 0.03 X 10*3/uL (0.00-0.10); Basophils % (A) 0.7 %; Eosinophils # (A) 0.05 X 10*3/uL (0.04-0.35); Eosinophils % (A) 1.2 %; HCT 38.6 % (37.2-46.3); HGB 13.1 g/dL (12.0-15.0); Lymphocytes # (A) 1.73 X 10*3/uL (0.90-5.00); Lymphocytes % (A) 41.5 %; MCH 32.2 pg (27.0-32.0); MCHC 33.9 g/dL (32.0-37.0); MCV 94.8 FL (80.0-97.0); Mean Platelet Volume 10.9 FL (9.5-12.2); Monocytes # (A) 0.32 X 10*3/uL (0.20-1.00); Monocytes % (A) 7.7 %; NRBC Per 100 WBC 0 X 10*3/uL (0.00-0.01); Neutrophils # (A) 2.03 X 10*3/uL (1.80-7.70); Neutrophils % (A) 48.7 %; Platelet Count 186 X 10*3/uL (140-440); RBC 4.07 X 10*6/uL (4.10-5.20); WBC 4.17 X 10*3/uL (4.50-10.00)
[2024-04-11 17:35] LABS: BUN/Creat Ratio 14.29 Ratio (12.00-20.00); Chloride 103 mmol/L (96-109); Chol/HDL Ratio 2.76 Ratio; Glucose 96 mg/dL (70-110); LDL Cholesterol,Calculated 100.6 mg/dL (0.0-131.0); Potassium 4.2 mmol/L (3.5-5.5); Sodium 140 mmol/L (135-145); VLDL Calculation 7.74 mg/dL (5.00-40.00)
[2024-04-11 17:36] LABS: ALT 12 U/L (8-44); AST 16 U/L (13-35); Albumin 4.5 g/dL (3.8-4.9); Albumin/Globulin Ratio 2.14 Ratio (1.60-3.17); Alkaline Phosphatase 51 U/L (41-126); Calcium 9.2 mg/dL (8.7-10.3); Carbon Dioxide 24.3 mmol/L (21.6-31.8); Globulin 2.1 g/dL (1.6-3.3); Total Bilirubin 0.5 mg/dL (0.3-1.2); Total Protein 6.6 g/dL (6.2-8.2)
== END | disposition home or self-care (01) ==
LOC: LABWHC1 09:23
PROVIDERS: ATTEND Family Medicine
DX: Z00.00 Encounter for general adult medical examination without abnormal findings (principal)
CPT/HCPCS: 36415; 80053; 80061; 85025